=== PATIENT | female | born 1985 | race Caucasian/White ===

== ENCOUNTER 2019-01-17 07:15 | Inpatient (IN) | payer OTHER ==
[~2019-01-17] VITALS: Ht 157.5 cm; Wt 73.0 kg
[~2019-01-17 07:15] MED LIST: CODE1TAB37 PO; Mylicon 125MG PO; SENNA S TABLET1 EACH PO
== END 2019-01-22 12:12 | disposition home or self-care (01) | DRG 785 ==
LOC: LDR 01-19 12:28 → SURG-SUITE 01-19 12:28 → O/R 01-19 17:25 → SURG-SUITE 01-19 19:24 → OB/GYN 01-22 07:15 → SURG-SUITE 01-22 12:12 → OB/GYN 01-22 12:45
PROVIDERS: ADMIT Obstetrics & Gynecology
PROC: 0UL70ZZ Occlusion of Bilateral Fallopian Tubes, Open Approach (ICD-10-PCS; 2019-01-19)
PROC: 4A1HXCZ Monitoring of Products of Conception, Cardiac Rate, External Approach (ICD-10-PCS; 2019-01-19)
PROC: 10D00Z1 Extraction of Products of Conception, Low, Open Approach (ICD-10-PCS; principal; 2019-01-19 16:00)
DX: O82 Encounter for cesarean delivery without indication (principal); Z3A.39 39 weeks gestation of pregnancy; Z37.0 Single live birth; Z30.2 Encounter for sterilization